=== PATIENT | female | born 1985 | race Caucasian/White ===

== ENCOUNTER 2019-12-16 09:12 | Emergency (ER) | payer OTHER ==
[~2019-12-16] VITALS: Ht 157.5 cm; Wt 77.2 kg
[2019-12-16 09:25] VITALS: BP 112/75
== END 2019-12-16 09:57 | disposition home or self-care (01) ==
LOC: ER 09:12
DX: S61.032A Puncture wound without foreign body of left thumb without damage to nail, initial encounter (principal); W27.3XXA Contact with needle (sewing), initial encounter; Y93.89 Activity, other specified; Y92.89 Other specified places as the place of occurrence of the external cause; Y99.8 Other external cause status
CPT/HCPCS: 99281